=== PATIENT | female | born 1955 | race Caucasian/White ===

== ENCOUNTER → 2016-07-18 | Outpatient (CLI) | payer OTHER ==
--- NOTE | 2016-07-18 11:29 | RAD ---
PROCEDURE MR of the left knee HISTORY Chronic anterolateral left knee pain. COMPARISON None TECHNIQUE Routine multiplanar sequences are obtained. FINDINGS Degenerative tear of the medial meniscus. Meniscus is extruded from the medial joint compartment. No evidence of lateral meniscal tear. Anterior and posterior cruciate ligaments are intact. Medial collateral ligament is intact. Iliotibial band, fibular collateral ligament, biceps femoris tendon and popliteus tendon are intact. The extensor mechanism is intact. Small joint effusion. No evidence of osteochondral loose body. Severe chondromalacia of the medial joint compartment. Mild flattening and irregularity of the subchondral bone surfaces. Moderate degenerative disease at the lateral joint compartment. Severe chondromalacia at the patellofemoral joint compartment. Medial patellar plica is incidentally noted with mild thickening and irregularity. This does extend to the medial edge of the femoral trochlea. No bone lesion or acute fracture. No significant Chan cyst. IMPRESSION 1. Medial meniscal tear. 2. Primary osteoarthritis, particularly severe at the medial joint compartment. 3. Mildly thickened and irregular medial patellar plica is noted. Electronically signed by: Prashant Dillard MD (July 18, 2016 11:28:50)
== END | disposition home or self-care (01) ==
LOC: MRI 09:32
PROVIDERS: ATTEND Nurse Practitioner Family
DX: M17.12 Unilateral primary osteoarthritis, left knee (principal)
CPT/HCPCS: 73721